=== PATIENT | female | born 1995 | race Asian ===

== ENCOUNTER 2018-05-05 10:23 | Emergency (ER) | payer OTHER ==
[2018-05-05] MEDS: LORAZEPAM 1 MG TAB PO (10:46)
== END 2018-05-05 11:50 | disposition home or self-care (01) ==
LOC: E/R 10:23
DX: R07.9 Chest pain, unspecified (principal); F41.1 Generalized anxiety disorder; R06.02 Shortness of breath; R20.2 Paresthesia of skin; J45.909 Unspecified asthma, uncomplicated
CPT/HCPCS: 99283-25; Z7502